=== PATIENT | male | born 1990 | race Caucasian/White ===

== ENCOUNTER → 2017-02-03 | Outpatient (CLI) | payer OTHER, MEDICAID ==
[~2017-02-03] MED LIST: CITA40TA12 PO; ESCI10TA PO; OLAN7.5T5 PO; QUET300T5 PO; SPIR100T2 PO; TAMS0.4C2 PO
[2017-02-03 18:08] LABS: HEMATOCRIT 42.9 % (39.2-51.8); HEMOGLOBIN 14.5 g/dL (13.7-18.0); WHITE BLOOD COUNT 7.3 x10^3/uL (3.4-10)
[2017-02-03 18:19] LABS: ASPARTATE AMINO TRANSFERASE 10 U/L (15-37); BLOOD UREA NITROGEN 20 mg/dL (7-18)
== END | disposition home or self-care (01) ==
LOC: RAD 17:41
PROVIDERS: ATTEND Emergency Medicine
DX: N13.39 Other hydronephrosis (principal); N32.3 Diverticulum of bladder; N18.9 Chronic kidney disease, unspecified
CPT/HCPCS: 36415; 76770; 80053; 81003; 85025

== ENCOUNTER 2019-01-01 14:53 | Emergency (ER) | payer MEDICAID ==
[~2019-01-01 14:53] MED LIST changes: -SPIR100T2 PO; +SPIR100T4 PO
--- NOTE | 2019-01-01 14:55 | NUR ---
CALLED FOR TRIAGE, NO ANSWER.
== END 2019-01-01 14:56 | disposition left against medical advice (07) ==
LOC: ED 14:54
DX: M54.9 Dorsalgia, unspecified (principal); Z53.21 Procedure and treatment not carried out due to patient leaving prior to being seen by health care provider

== ENCOUNTER 2019-07-12 12:07 | Emergency (ER) | payer MEDICAID ==
[~2019-07-12] VITALS: Ht 195.6 cm; Wt 77.0 kg
[2019-07-12] MEDS ORDERED: SODIUM CHLORIDE FLUSH 10ML SYR IVF ONE (12:30)
[2019-07-12] MEDS ORDERED: DIPH,PERTUSS(ACELL),TET VAC/PF 0.5 ML IM-VACC ONE (12:30)
--- NOTE | 2019-07-12 12:50 | NUR ---
pt moved to room 30 from [facility]. report from Noelle ANDREA. pt here for redness and swelling to R hand after a cast iron stove fell on it 3 days ago. pt to have IV ABX. lab at bedside to draw cultures. no family at bedside. no drainage from wound. no family at bedside
[2019-07-12 12:57] LABS: BASOPHILS # (AUTO) 0.03 x10^3/uL (0-0.1); BASOPHILS % (AUTO) 0 % (0-1); EOSINOPHILS # (AUTO) 0.13 x10^3/uL (0-0.4); EOSINOPHILS % (AUTO) 2 % (1-7); LYMPHOCYTES # (AUTO) 2.01 x10^3/uL (1-3.4); LYMPHOCYTES % (AUTO) 22 % (22-44); MD NO; MEAN CORPUSCULAR HEMOGLOBIN 31.4 pg (27.5-34.5); MEAN CORPUSCULAR HGB CONC 33.9 g/dL (33.2-36.2); MEAN CORPUSCULAR VOLUME 92.6 fL (81-97); MEAN PLATELET VOLUME 8.1 fL (7.4-10.4); MONOCYTES # (AUTO) 0.64 x10^3/uL (0.2-0.8); MONOCYTES % (AUTO) 7 % (2-9); NEUTROPHILS # (AUTO) 6.26 x10^3/uL (1.8-6.8); NEUTROPHILS % (AUTO) 69 % (42-75); PLATELET COUNT 227 x10^3/uL (130-400); RED BLOOD COUNT 4.91 x10^6/uL (4.38-5.82); RED CELL DISTRIBUTION WIDTH 12.8 % (9.4-14.8)
[2019-07-12] MEDS ORDERED: VANCOMYCIN PER PHARMACY MC ONE (13:00)
[2019-07-12] MEDS ORDERED: AMPICILLIN/SULBACTAM 3 GM in SODIUM CHLORIDE 0.9% 100 ML IV ONE (13:00)
[2019-07-12 13:08] LABS: ALBUMIN 3.7 g/dL (3.4-5.0); ANION GAP 7 mmol/L (5-15); CALCIUM 9.2 mg/dL (8.5-10.1); CHLORIDE 111 mmol/L (98-107); CREATININE 1.57 mg/dL (0.7-1.3)
--- NOTE | 2019-07-12 13:30 | NUR ---
pt has been given Ice pack and UE elevated for comfort. ABX infusing without dificulty
--- NOTE | 2019-07-12 13:57 | NUR ---
no changes. warm blanket given. pt watching TV. pt declines tetanus at thei time. states that he had a tetanus shot about 4 years ago
--- NOTE | 2019-07-12 14:40 | NUR ---
pharmacy contacted regarding delivery of vancomycin
--- NOTE | 2019-07-12 14:42 | NUR ---
per pharmacy, pt vanco infusion not ready yet. to be delivered soon. pt updated on POC
[2019-07-12] MEDS ORDERED: VANCOMYCIN 1,600 MG in SODIUM CHLORIDE 0.9% 250 ML IV ONE (15:30)
--- NOTE | 2019-07-12 15:54 | NUR ---
no changes. pt resting in position of comfort with vanco infusing. no bnew c/o
--- NOTE | 2019-07-12 17:00 | NUR ---
pt reports that his face feels hot. pt has some mild flushing/redness to face. infusion stopped. pt has no respiratory distress. no diifficulty breathing speaking or swallowing. no oral swelling. infusion stopped. notified
[2019-07-12 17:18] VITALS: BP 119/75
--- NOTE | 2019-07-12 17:18 | NUR ---
facial redness has resolved. no resp. distress. no swelling noted. wound has been marked to R hand
== END 2019-07-12 17:22 | disposition home or self-care (01) ==
LOC: ED 16:13
DX: S61.411A Laceration without foreign body of right hand, initial encounter (principal); W20.8XXA Other cause of strike by thrown, projected or falling object, initial encounter; Y93.89 Activity, other specified; Y92.098 Other place in other non-institutional residence as the place of occurrence of the external cause; Y99.8 Other external cause status
CPT/HCPCS: 29130; 36415; 73130; 80048; 82040; 85025; 87040; 96365; 96366; 96367; 99284; J0295; J3370; J7050

== ENCOUNTER 2019-07-22 22:25 | Emergency (ER) | payer MEDICAID ==
[~2019-07-22] VITALS: Ht 198.1 cm; Wt 76.6 kg
[2019-07-22 22:29] VITALS: BP 133/84
== END 2019-07-23 00:10 | disposition home or self-care (01) ==
LOC: ED 07-23 00:08
DX: L03.113 Cellulitis of right upper limb (principal)
CPT/HCPCS: 99283